=== PATIENT | male | born 1995 | race Caucasian/White ===

== ENCOUNTER 2018-08-31 11:29 | Emergency (ER) | payer OTHER ==
[~2018-08-31] VITALS: Ht 182.9 cm; Wt 65.8 kg
[~2018-08-31 11:29] MED LIST: ARTHRITIS PAIN650 M3 PO; IBUPROFEN 600600 M1 PO; IBUPROFEN 800800 M1 PO; MEDROLDOSEPACK PO; NOHOMEMEDICATIONS
[2018-08-31 12:13] LABS: INFLUENZA A ANTIGEN None Detected (None Detect); INFLUENZA B ANTIGEN None Detected (None Detect)
[2018-08-31 12:29] LABS: HEMATOCRIT 40.1 % (42.0-52.0); HEMOGLOBIN 13.7 gm/dL (14.0-18.0); MCHC 34.1 g/dL (28.0-37.0); MPV 9.1 fl. (7.2-11.1); NUCLEATED RBCS 0 /100WBC; PLATELET COUNT* 239 thou/uL (150-400); RBC 4.56 mil/uL (4.50-6.00); RDW-CV 12.8 % (10.5-14.5); WBC 10.6 thou/uL (4.0-11.0)
[2018-08-31 12:35] LABS: CALCIUM 8.5 mg/dL (8.5-10.1); POTASSIUM 3.6 mmol/L (3.5-5.1)
[2018-08-31 12:35] LABS: URINE BLOOD NEGATIVE (Negative); URINE CLARITY CLEAR; URINE COLOR YELLOW; URINE GLUCOSE-RANDOM NEGATIVE (Negative); URINE LEUKOCYTES-REFLEX NEGATIVE (Negative); URINE NITRITE-REFLEX NEGATIVE (Negative); URINE PROTEIN TRACE (Negative); URINE SPECIFIC GRAVITY 1.015 (1.005-1.030); URINE UROBILINOGEN 0.2 E.U./dl (0.2-1.0)
[2018-08-31 12:40] LABS: ALBUMIN 3.7 g/dL (3.4-5.0); TOTAL BILIRUBIN 0.7 mg/dL (<0.1-1.0); TOTAL PROTEIN 7.1 g/dL (6.4-8.2)
[2018-08-31 12:46] LABS: ACETEST (KETONE CONFIRMATORY) Large (Negative); URINE BILIRUBIN 1+ (Negative); URINE KETONES 3+ (Negative)
[2018-08-31 12:47] LABS: ICTOTEST (BILI CONFIRMATORY) Negative (Negative)
[2018-08-31] MEDS ORDERED: ONDANSETRON HCL4 M2 PO (12:55)
[2018-08-31] MEDS ORDERED: ZPAK PO (12:56)
[2018-08-31] MEDS ORDERED: TESSALON PERLE100 MG PO (12:56)
[2018-08-31] MEDS ORDERED: VENTOLIN HFA 1818 GM INH (12:56)
[2018-08-31] MEDS ORDERED: MEDROLDOSEPACK PO (12:56)
[2018-08-31 13:03] LABS: ABSOLUTE BASOPHILS 0.1 thou/uL (0.0-0.2); ABSOLUTE LYMPHOCYTES 0.8 thou/uL (0.8-5.3); ABSOLUTE MONOCYTES 1.1 thou/uL (0.0-1.2); ABSOLUTE NEUTROPHILS 8.6 thou/uL (1.6-8.1)
[2018-08-31 13:04] LABS: PLATELET ESTIMATE ADEQUATE; TOXIC GRANULATION 1+
[2018-08-31 13:06] VITALS: BP 115/57
== END 2018-08-31 13:06 | disposition home or self-care (01) ==
LOC: M.ERS 11:29
PROVIDERS: Nurse Practitioner Family
DX: J20.9 Acute bronchitis, unspecified (principal); E86.0 Dehydration; R11.2 Nausea with vomiting, unspecified; F17.200 Nicotine dependence, unspecified, uncomplicated

== ENCOUNTER 2019-07-03 15:43 | Emergency (ER) | payer OTHER ==
[~2019-07-03] VITALS: Ht 182.9 cm; Wt 70.3 kg
[~2019-07-03 15:43] MED LIST changes: +ONDANSETRON HCL4 M2 PO; +TESSALON PERLE100 MG PO; +VENTOLIN HFA 1818 GM INH; +ZPAK PO
[2019-07-03 17:03] LABS: ABSOLUTE BASOPHILS 0.1 thou/uL (0.0-0.2); ABSOLUTE LYMPHOCYTES 1.4 thou/uL (0.8-5.3); ABSOLUTE MONOCYTES 0.4 thou/uL (0.0-1.2); ABSOLUTE NEUTROPHILS 6.5 thou/uL (1.6-8.1); BASOPHILS 0.7 %; EOSINOPHILS 0.4 %; HEMATOCRIT 44.1 % (42.0-52.0); HEMOGLOBIN 15.2 gm/dL (14.0-18.0); LYMPHOCYTES 16.6 %; MCH 30.5 pg (26.0-34.0); MCHC 34.5 g/dL (28.0-37.0); MCV 88.4 fL (80.0-100.0); MONOCYTES 5.2 %; MPV 9.7 fl. (7.2-11.1); NUCLEATED RBCS 0 /100WBC; PLATELET COUNT* 295 thou/uL (150-400); POLYS 77.1 %; RBC 4.99 mil/uL (4.50-6.00); RDW-CV 12.4 % (10.5-14.5); WBC 8.5 thou/uL (4.0-11.0)
[2019-07-03 17:15] VITALS: BP 134/62
[2019-07-03 17:21] LABS: CALCIUM 9.2 mg/dL (8.5-10.1); CREATININE 0.9 mg/dL (0.6-1.3); POTASSIUM 3.9 mmol/L (3.5-5.1)
[2019-07-03 17:26] LABS: ALBUMIN 4.8 g/dL (3.4-5.0); TOTAL BILIRUBIN 0.4 mg/dL (<0.1-1.0); TOTAL PROTEIN 7.9 g/dL (6.4-8.2)
--- NOTE | 2019-07-05 11:15 | EKG ---
[place] [address] ELECTROCARDIOGRAM REPORT Name: PALMER PERLA Room: [facility]#: [id number] Admission: 07/03/19 Attend Phys: Discharge: 07/03/19 Date of : [birth year] Report #: [id number] THIS REPORT FOR: //name// [facility] ED Test Date: 2019-07-03 Test Time: 16:13:42 Pat Name: PALMER PERLA Department: Room: Gender: M General Neurologist: SCOTT : 1995 Requested By: Misha Crowley Order Number: [id number] MD: David Hanson Measurements Intervals [place] Rate: 68 P: 71 [place]: 133 QRS: 31 QRSD: 88 T: 28 QT: 401 QTc: 427 Interpretive Statements Sinus rhythm No previous ECG available for comparison Electronically Signed On 07-05-2019 11:14:47 [employer] by David Hanson [email or web address] <ELECTRONICALLY SIGNED> By: David Hanson MD, [facility] 07/05/19 1114 1613 1613 David Hanson MD, FACC /EPI
== END 2019-07-03 17:17 ==
LOC: M.ERS 15:43
PROVIDERS: Family Medicine
DX: R55 Syncope and collapse (principal); Z88.6 Allergy status to analgesic agent